=== PATIENT | male | born 1955 | race Caucasian/White ===

== ENCOUNTER 2017-01-10 13:41 | Inpatient (IN) | payer BC, OTHER ==
[~2017-01-10] VITALS: Ht 193 cm; Wt 84.8 kg
--- NOTE | ~2017-01-10 | EKG ---
[place] [address] [facility] [address] [place] [address] ELECTROCARDIOGRAM REPORT Name: MITZI IZAGUIRRE Room #: 305-P ADM IN M.R.#: [id number] Admission: 01/10/17 Attend Phys: Domenico Clement MD Discharge: Date of : 57 Report #: [id number] THIS REPORT FOR: //name// [facility] ED Test Date: 2017-01-10 Test Time: 14:36:25 Pat Name: MITZI IZAGUIRRE Department: Room: [facility] Gender: M [employer]: [id number] : [id number] Requested By: Apryl May Order Number: [id number] MD: Micky Matthews Measurements Intervals [place] Rate: 59 P: 30 DE: 179 QRS: -54 QRSD: 87 T: 43 QT: 413 QTc: 410 Interpretive Statements Sinus rhythm Left anterior fascicular block Poor R wave progression No previous ECG available for comparison Electronically Signed On 01-11-2017 13:50:09 CDT by Micky Matthews [email or web address] <ELECTRONICALLY SIGNED> By: Micky Matthews MD, [facility] 01/11/17 1350 D: [id number] Micky Matthews MD, FACC /EPI
--- NOTE | ~2017-01-10 | 2DMMODE ---
[facility] [address] [place] [address] 2 D/M-MODE ECHOCARDIOGRAM Name: MOOKIEGREGMITZI Room #: 305-P ADM IN M.R.#: [id number] Admission: 01/10/17 Attend Phys: Randall Lee Discharge: Date of : 57 Date of Service: 01/12/17 1005 Report #: [id number] THIS REPORT FOR: //name// APPROVED REPORT Study performed: 01/12/2017 08:09:51 EXAM: Comprehensive 2D, Doppler, and color-flow Echocardiogram Patient Location: Bedside Room #: [facility] Status: routine BSA: 2.15 BP: 105/60 mmHg Other Information Study Quality: Adequate Indications CVA/TIA Echo Enhancing Agent Indication: Rule out Shunt Agent(s) / Amount(s) Used: Agitated Saline 8 cc 2D Dimensions RVDd: 31.84 mm LVEF(%): 60.78 (>50%) IVSd: 12.12 (7-11mm) LVOT Diam: 22.03 (18-24mm) LVDd: 45.35 mm PWd: 10.72 (7-11mm) Ascending Ao: 33.56 (22-36mm) LVDs: 30.66 (25-40mm) Aortic Root: 30.68 mm IVC: 17.00 mm Ivlla's LVEF: 60.78 % Volumes Left Atrial Volume (Systole) Single Plane 4CH: 28.84 mL Single Plane 2CH: 48.75 mL LA ESV Index: 19.00 mL/m2 Aortic Valve AoV Peak Ariel.: 1.29 m/s AO Peak Gr.: 6.62 mmHg LVOT Max P.07 mmHg LVOT Max V: 1.01 m/s ANTELMO Vmax: 2.98 cm2 [facility] [employer] [place] [address] 2 D/M-MODE ECHOCARDIOGRAM Name: MITZI IZAGUIRRE Room #: 305-P ADM IN M.R.#: [id number] Admission: 01/10/17 Attend Phys: Randall Lee Discharge: Date of : 57 Date of Service: 01/12/17 1005 Report #: [id number] Mitral Valve E/A Ratio: 1.3 MV Decel. Time: 260.11 ms MV E Max Ariel.: 0.83 m/s MV A Ariel.: 0.65 m/s MV PHT: 75.43 ms IVRT: 114.19 ms Pulmonary Valve PV Peak Ariel.: 0.87 m/s PV Peak Gr.: 3.02 mmHg Pulmonary Vein P Vein S: 0.67 m/s P Vein A: 0.35 m/s P Vein D: 0.50 m/s P Vein A Dur.: 133.8 msec P Vein S/D Ratio: 1.34 Tricuspid Valve TR Peak Ariel.: 2.60 m/s RAP Estimate: 5.00 mmHg TR Peak Gr.: 27.02 mmHg Left Ventricle The left ventricle is normal size. There is normal left ventricular wall thickness. The left ventricular systolic function is normal. The left ventricular ejection fraction is within the normal range. LVEF is 65%. The left ventricular diastolic function is normal. Right Ventricle The right ventricle is normal size. The right ventricular systolic function is normal. Atria The left atrium size is normal. Injection of bubbles documented no interatrial shunt. The right atrium size is normal. Aortic Valve The aortic valve is normal in structure. No aortic regurgitation is present. There is no aortic valvular stenosis. Mitral Valve The mitral valve is normal in structure. There is no mitral valve regurgitation noted. No evidence of mitral valve stenosis. Tricuspid Valve The tricuspid valve is normal in structure. There is trace tricuspid regurgitation. The right atrial pressure is estimated at 5 mmHg. PAP is estimated at 32 mmHg. [facility] [address] [place] [address] 2 D/M-MODE ECHOCARDIOGRAM Name: MITZI IZAGUIRRE Room #: 305-P ADM IN M.R.#: [id number] Admission: 01/10/17 Attend Phys: Randall Lee Discharge: Date of : 57 Date of Service: 01/12/17 1005 Report #: [id number] Pulmonic Valve The pulmonary valve is normal in structure. Trace pulmonic regurgitation. Great Vessels The aortic root is normal in size. IVC is normal in size and collapses >50% with inspiration. Pericardium There is no pericardial effusion. <Conclusion> 1. Normal echocardiogram with Doppler 2. No pericardial effusion <ELECTRONICALLY SIGNED> By: Micky Matthews MD, FACC 01/12/17 1005 1005 1005 Micky Matthews MD, FACC /INF
[2017-01-10 13:50] VITALS: BP 128/93
[2017-01-10 14:36] LABS: ABSOLUTE NEUTROPHILS 3.7 thou/uL (1.4-8.2); BASOPHILS 1.2 % (0.0-2.0); EOSINOPHILS 1.6 % (0.0-3.0); HEMATOCRIT 46.8 % (42.0-52.0); HEMOGLOBIN 15.5 gm/dL (14.0-18.0); LYMPHOCYTES 26.2 % (24.0-44.0); MCH 28.4 pg (26.0-34.0); MCHC 33.1 g/dL (28.0-37.0); MCV 85.9 fL (80.0-100.0); MONOCYTES 9.4 % (1.0-8.0); PLATELET COUNT 227 thou/uL (150-400); POLYS 61.6 % (36.0-66.0); RBC 5.45 mil/uL (4.50-6.00); RDW 14.6 % (10.5-14.5)
[2017-01-10 14:37] LABS: MANUAL DIFF NO
[2017-01-10 14:43] LABS: ANION GAP 10 mmol/L (7-16); BUN 27 mg/dL (7-18); CHLORIDE 103 mmol/L (98-107); CO2 26 mmol/L (21-32); CREATININE 0.7 mg/dL (0.7-1.3); GLUCOSE 95 mg/dL (74-106); POTASSIUM 3.8 mmol/L (3.5-5.1); SODIUM 139 mmol/L (136-145)
[2017-01-10 14:52] LABS: ALBUMIN 3.9 g/dL (3.4-5.0); ALKALINE PHOSPHATASE 78 U/L (46-116); SGOT 17 U/L (15-37); SGPT 27 U/L (30-65); TOTAL BILIRUBIN 0.5 mg/dL (<0.1-1.0); TOTAL PROTEIN 7.3 g/dL (6.4-8.2); TROPONIN-I < 0.04 ng/mL (<0.04-0.07)
[2017-01-10 16:38] VITALS: BP 133/90
[2017-01-10 18:41] VITALS: BP 156/69
[2017-01-10 18:50] VITALS: BP 137/82
[2017-01-10 21:14] LABS: URINE BILIRUBIN NEGATIVE (Negative); URINE BLOOD NEGATIVE (Negative); URINE COLOR YELLOW; URINE GLUCOSE-RANDOM* NEGATIVE (Negative); URINE KETONES TRACE (Negative); URINE NITRITE NEGATIVE (Negative); URINE PROTEIN (DIPSTICK) NEGATIVE (Negative)
[2017-01-10 23:40] VITALS: BP 112/77
[2017-01-11 03:45] VITALS: BP 105/74
[2017-01-11 06:36] LABS: HEMOGLOBIN 14.3 gm/dL (14.0-18.0); MCH 28.7 pg (26.0-34.0); MCHC 33.3 g/dL (28.0-37.0); MCV 86.1 fL (80.0-100.0); RBC 4.99 mil/uL (4.50-6.00); RDW 14.5 % (10.5-14.5); WBC 5.2 thou/uL (4.0-11.0)
[2017-01-11 06:49] LABS: ALBUMIN 3.1 g/dL (3.4-5.0); ALKALINE PHOSPHATASE 68 U/L (46-116); ANION GAP 7 mmol/L (7-16); BUN 22 mg/dL (7-18); CALCIUM 8.2 mg/dL (8.5-10.1); CHLORIDE 106 mmol/L (98-107); CHOLESTEROL 187 mg/dL (<200); CO2 27 mmol/L (21-32); CREATININE 0.7 mg/dL (0.7-1.3); GLUCOSE 88 mg/dL (74-106); HDL CHOLESTEROL 47 mg/dL (>40); LDL CHOLESTEROL 125 mg/dL (<100); POTASSIUM 3.8 mmol/L (3.5-5.1); SGOT 11 U/L (15-37); SGPT 20 U/L (30-65); SODIUM 140 mmol/L (136-145); TOTAL BILIRUBIN 0.5 mg/dL (<0.1-1.0); TRIGLYCERIDE 75 mg/dL (<150); VLDL 15 mg/dL (<40)
[2017-01-11 07:56] VITALS: BP 121/87
[2017-01-11 15:12] VITALS: BP 120/84
[2017-01-11 19:09] VITALS: BP 118/85
[2017-01-12 04:09] VITALS: BP 105/60
[2017-01-12 08:00] VITALS: BP 123/80
[2017-01-12 12:29] VITALS: BP 123/80
== END 2017-01-12 14:10 | disposition home or self-care (01) | DRG 66 ==
LOC: ER 13:41 → 3N 15:58 → EROBS 15:58 → 3N 18:42
PROVIDERS: Family Medicine; Nurse Practitioner Family
DX: I63.9 Cerebral infarction, unspecified (principal); E78.5 Hyperlipidemia, unspecified; E53.8 Deficiency of other specified B group vitamins; Z79.899 Other long term (current) drug therapy
CPT/HCPCS: 10096